=== PATIENT | female | born 1995 | race Caucasian/White ===

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

== ENCOUNTER → 2017-03-08 | Outpatient (CLI) | payer OTHER ==
[~2017-03-08] MED LIST: BCPILLS PO; MNC50 PO
[2017-03-08 11:54] LABS: CHOLESTEROL 187 mg/dl (0-200)
== END | disposition home or self-care (01) ==
LOC: C.LAB 09:24
PROVIDERS: ATTEND Dermatology
DX: Z01.89 Encounter for other specified special examinations (principal)